=== PATIENT | male | born 1965 | race African-American/Black ===

== ENCOUNTER 2021-08-15 13:31 | Emergency (ER) | payer OTHER ==
[~2021-08-15] VITALS: Ht 177.8 cm; Wt 115.0 kg
[~2021-08-15 13:31] MED LIST: ATEN-73 PO; GLUC100019 PO; LISI1TAB9 PO; LORA10TA60 PO; MULT-968 PO
[2021-08-15] MEDS ORDERED: FLUORESCEIN SODIUM 1 MG STRIP OS ONE (16:15)
[2021-08-15 16:53] VITALS: BP 145/89
== END 2021-08-15 16:54 | disposition home or self-care (01) ==
LOC: EMS 13:31
DX: R21 Rash and other nonspecific skin eruption (principal); H53.8 Other visual disturbances; Z87.891 Personal history of nicotine dependence; Z79.899 Other long term (current) drug therapy
CPT/HCPCS: 99283